=== PATIENT | female | born 1950 | race Caucasian/White ===

== ENCOUNTER 2020-06-17 18:09 | Emergency (ER) | payer OTHER ==
[~2020-06-17] VITALS: Ht 165.1 cm; Wt 54.5 kg
[~2020-06-17 18:09] MED LIST: AMLO-257 PO; DULO30CA96 PO; QUET200T PO
[2020-06-17 22:49] LABS: GLUCOSE,POINT OF CARE 109 MG/DL (70-110)
[2020-06-17 23:38] VITALS: BP 149/85
[2020-06-18 01:28] LABS: CARBON DIOXIDE 20 mmol/L (22-29); CHLORIDE 95 mmol/L (98-107); POTASSIUM 4.2 mmol/L (3.5-5.1); SODIUM SERUM 126 mmol/L (136-145)
[2020-06-18 01:29] LABS: ANION GAP 11 mmol/L (8-16); CALCIUM, TOTAL 8.7 mg/dL (8.8-10.5); GLUCOSE,RANDOM 98 mg/dL (70-110); UREA NITROGEN, BLOOD 6 mg/dL (7-18)
[2020-06-18 01:30] LABS: GLOMERULAR FILTR. RATE CALC > 60 mL/min (>60)
[2020-06-18 01:34] LABS: ALANINE AMINOTRANSFERASE 37 U/L (12-78); ALBUMIN 2.7 g/dL (3.4-5.0); ALKALINE PHOSPHATASE 86 U/L (46-116); ASPARTATE AMINOTRANSFERASE 57 U/L (15-37); BILIRUBIN,TOTAL 0.4 mg/dL (0.1-1.0); TOTAL PROTEIN, SERUM 7.9 g/dL (6.4-8.2)
== END 2020-06-17 23:41 | disposition home or self-care (01) ==
LOC: EMS 18:09
DX: F10.129 Alcohol abuse with intoxication, unspecified (principal); Y90.9 Presence of alcohol in blood, level not specified